=== PATIENT | male | born 1980 | race African-American/Black ===

== ENCOUNTER 2017-08-26 08:05 | Emergency (ER) | payer OTHER ==
[~2017-08-26] VITALS: Ht 170.2 cm; Wt 127.0 kg
[2017-08-26] MEDS ORDERED: IOHEXOL 350 MG/ML 10 ML VIAL (for RAD DIAG) IVCONTRAST ONE (08:06)
[2017-08-26 08:07] VITALS: BP 157/96; PULSE 111; RESP 15; TEMP 100.8; O2SAT 100
[2017-08-26] MEDS ORDERED: SODIUM CHLOR 0.9% 1000 ML INJ 1,000 ML IV SCH (08:32)
[2017-08-26] MEDS ORDERED: MORPHINE SULFATE 4 MG/ML INJ IV PUSH ONE (08:45)
[2017-08-26] MEDS ORDERED: SODIUM CHLORIDE 0.9% FLUSH 10 ML FLUSH IV FLUSH PRN (08:45)
[2017-08-26] MEDS ORDERED: ONDANSETRON HCL 4 MG/2 ML VIAL IVP ONE (08:45)
[2017-08-26] MEDS ORDERED: SOD PHOSPHATE/SOD BIPHOSPHATE (ADULT) ENEMA 133ML RECTAL ONE (08:45)
[2017-08-26 09:03] VITALS: O2SAT 98
--- NOTE | 2017-08-26 09:08 | PD ---
HPI Chief Complaint: GI Complaint Time Seen by Provider: 08:32 Travel History International Travel<30 days: No Contact w/Intl Traveler<30days: No Traveled to known affect area: No History of Present Illness HPI 37-year-old male complains of hemorrhoids for 4 days. He tried preparation H last night did not help. He has had no bleeding. He reports no bowel movement for fear of pain. Timing constant. Severity moderate to severe. No similar prior episodes. PFSH Past Medical History Gastrointestinal Disorders: Yes (external and internal hemorrhoids) Tetanus Vaccination: < 5 Years Influenza Vaccination: No Past Surgical History Surgical History: No Previous Surgery Social History Alcohol Use: Yes (wine and liquor daily) Tobacco Use: No Substance Use: No Allergies-Medications (Allergen,Severity, Reaction): Coded Allergies: azithromycin (Verified Allergy, Severe, Itching, 08/26/17) Reported Meds & Prescriptions Reported Meds & Active Scripts Active Clindamycin (Clindamycin HCl) 150 Mg Cap 450 Mg PO Q8HR 10 Days Review of Systems Except as stated in HPI: all other systems reviewed are Neg General / Constitutional: No: Fever Physical Exam Narrative GENERAL: 37-year-old male no acute distress well-nourished well-developed Vital Signs Date Time Temp Pulse Resp B/P (MAP) Pulse Ox O2 Delivery O2 Flow Rate FiO2 08/26/17 12:47 08/26/17 09:03 98 Room Air 08/26/17 08:07 100.8 111 15 157/96 (116) 100 RECTAL: There is internal hemorrhoids with an external hemorrhoids. There is minimal induration of the perianal dermis without abscess or obvious cellulitis. There is no rectal mass. SKIN: Warm and dry. HEAD: Atraumatic. Normocephalic. EYES: Pupils equal and round. No scleral icterus. No injection or drainage. ENT: No nasal bleeding or discharge. Mucous membranes pink and moist. NECK: Trachea midline. No JVD. CARDIOVASCULAR: Regular rate and rhythm. RESPIRATORY: No accessory muscle use. Clear to auscultation. Breath sounds equal bilaterally. GASTROINTESTINAL: Abdomen soft, non-tender, nondistended. Hepatic and splenic margins not palpable. MUSCULOSKELETAL: Extremities without clubbing, cyanosis, or edema. No obvious deformities. NEUROLOGICAL: Awake and alert. No obvious cranial nerve deficits. Motor grossly within normal limits. Five out of 5 muscle strength in the arms and legs. Normal speech. PSYCHIATRIC: Appropriate mood and affect; insight and judgment normal. Data Data Last Documented VS Vital Signs Date Time Temp Pulse Resp B/P (MAP) Pulse Ox O2 Delivery O2 Flow Rate FiO2 08/26/17 12:47 08/26/17 09:03 98 Room Air 08/26/17 08:07 100.8 111 15 Orders Orders Basic Metabolic Panel (Bmp) (08/26/17 08:32) Complete Blood Count With Diff (08/26/17 08:32) Iv Access Insert/Monitor (08/26/17 08:32) Ecg Monitoring (08/26/17 08:32) Oximetry (08/26/17 08:32) Morphine Inj (Morphine Inj) (08/26/17 08:45) Ondansetron Inj (Zofran Inj) (08/26/17 08:45) Sodium Chlor 0.9% 1000 Ml Inj (Ns 1000 M (08/26/17 08:32) Sodium Chloride 0.9% Flush (Ns Flush) (08/26/17 08:45) Ct Pelvis W Iv Contrast(Rout) (08/26/17 ) Fleets Enema (Adult) (Fleets Enema (Adul (08/26/17 08:45) Lidocaine 2% Jelly (Xylocaine 2% Jelly) (08/26/17 09:30) Iohexol 350 Inj (Omnipaque 350 Inj) (08/26/17 08:06) Clindamycin (Cleocin) (08/26/17 12:15) Ed Discharge Order (08/26/17 12:04) Labs Laboratory Tests Test 08/26/17 08:55 White Blood Count 9.9 TH/MM3 Red Blood Count 4.18 MIL/MM3 Hemoglobin 13.8 GM/DL Hematocrit 40.0 % Mean Corpuscular Volume 95.8 FL Mean Corpuscular Hemoglobin 33.0 PG Mean Corpuscular Hemoglobin Concent 34.5 % Red Cell Distribution Width 12.7 % Platelet Count 242 TH/MM3 Mean Platelet Volume 9.1 FL Neutrophils (%) (Auto) 84.5 % Lymphocytes (%) (Auto) 6.3 % Monocytes (%) (Auto) 8.9 % Eosinophils (%) (Auto) 0.0 % Basophils (%) (Auto) 0.3 % Neutrophils # (Auto) 8.4 TH/MM3 Lymphocytes # (Auto) 0.6 TH/MM3 Monocytes # (Auto) 0.9 TH/MM3 Eosinophils # (Auto) 0.0 TH/MM3 Basophils # (Auto) 0.0 TH/MM3 CBC Comment DIFF FINAL Differential Comment Blood Urea Nitrogen 10 MG/DL Creatinine 1.22 MG/DL Random Glucose 117 MG/DL Calcium Level 9.0 MG/DL Sodium Level 134 MEQ/L Potassium Level 4.1 MEQ/L Chloride Level 98 MEQ/L Carbon Dioxide Level 29.3 MEQ/L Anion Gap 7 MEQ/L Estimat Glomerular Filtration Rate 81 ML/MIN MDM Medical Decision Making Medical Screen Exam Complete: Yes Emergency Medical Condition: Yes Medical Record Reviewed: Yes Differential Diagnosis Internal hemorrhoid, external hemorrhoid, ischio rectal abscess, perianal abscess Narrative Course CBC & BMP Diagram 08/26/17 08:55 Calcium Level 9.0 Last [address] 08/26/17 0000 Signed Impressions: Service Date/Time: Saturday, August 26, 2017 11:25 - CONCLUSION: 1. Mild subcutaneous fat induration in the left and right periatrial gluteal region. 2. Otherwise negative exam. Eric Sloan MD We will provide a Clinda prescription. Return precautions discussed. Patient verbalized understanding. He is ready for discharge. Diagnosis Primary Impression: Cellulitis of buttock Referrals: Primary Care Physician 2 days Med/Other Pt SpecificInfo: Prescription(s) given Scripts Clindamycin (Clindamycin) 150 Mg Cap 450 MG PO Q8HR for Infection for 10 Days, CAP 0 Refills Prov: Vikas West MD 08/26/17 Disposition: DISCHARGE HOME Condition: Stable Vikas West MD Aug 26, 2017 09:08
[2017-08-26] MEDS ORDERED: LIDOCAINE 2% JELLY 30 ML TUBE TOPICAL ONE (09:30)
[2017-08-26 09:35] LABS: AUTOMATED NEUTROPHIL # 8.4 TH/MM3 (1.8-7.7); BASOPHIL % 0.3 % (0.0-2.0); HEMOGLOBIN 13.8 GM/DL (13.0-17.0); LYMPH % 6.3 % (9.0-44.0); LYMPHOCYTE # 0.6 TH/MM3 (1.0-4.8); MEAN CELL VOLUME 95.8 FL (80.0-100.0); MEAN CORPUSCULAR HGB CONC 34.5 % (32.0-36.0); MEAN PLATELET VOLUME 9.1 FL (7.0-11.0); MONO % 8.9 % (0.0-8.0); MONOCYTE # 0.9 TH/MM3 (0-0.9); NEUT % 84.5 % (16.0-70.0); PLATELET COUNT 242 TH/MM3 (150-450); RED BLOOD COUNT 4.18 MIL/MM3 (4.50-5.90); RED CELL DISTRIBUTION WIDTH 12.7 % (11.6-17.2); WHITE BLOOD COUNT 9.9 TH/MM3 (4.0-11.0)
[2017-08-26 09:53] LABS: BICARBONATE 29.3 MEQ/L (21.0-32.0); CREATININE 1.22 MG/DL (0.60-1.30)
--- NOTE | 2017-08-26 11:51 | RADRPT ---
EXAM DATE/TIME: 08/26/2017 11:25 [facility] COMPARISON: No previous studies available for comparison. INDICATIONS : Swelling around anus, unable to sit. IV CONTRAST: 87 cc Omnipaque 350 (iohexol) IV ORAL CONTRAST: No oral contrast ingested. RADIATION DOSE: 15.49 CTDIvol (mGy) MEDICAL HISTORY : Internal and external hemorrhoids. SURGICAL HISTORY : None. ENCOUNTER: Initial ACUITY: 4 - 6 days PAIN SCALE: 10/10 LOCATION: pelvis TECHNIQUE: Volumetric scanning of the pelvis was performed. Using automated exposure control and adjustment of t he mA and/or kV according to patient size, radiation dose was kept as low as reasonably achievable to obtain optimal diagnostic quality images. DICOM format image data is available electronically for review and comparison. FINDINGS: Examination was performed to evaluate the perianal region. There is some mild induration of the fat of the left and right gluteal fold. No focal fluid collections. No discrete mass seen. The fat of the ischial rectal fossa is symmetric and normal in appearance. No evidence of free fluid in the pel vis. Bladder contour is smooth. No evidence of deep pelvic or inguinal adenopathy. Wide windows fo r bony detail demonstrate the osseous structures to be intact. CONCLUSION: 1. Mild subcutaneous fat induration in the left and right periatrial gluteal region. 2. Otherwise negative exam. Eric Sloan MD on August 26, 2017 at 11:47 Board Certified Radiologist. This report was verified electronically.
[2017-08-26] MEDS ORDERED: CLIN150C14 PO (12:12)
[2017-08-26] MEDS ORDERED: CLINDAMYCIN 150 MG CAP PO ONE (12:15)
== END 2017-08-26 12:48 | disposition home or self-care (01) ==
LOC: NEPC 08:05
DX: L03.317 Cellulitis of buttock (principal); K64.4 Residual hemorrhoidal skin tags
CPT/HCPCS: 72193; 80048; 85025; 96361; 96374; 96375; 99284; J2270; J2405; J7030; Q9967